=== PATIENT | female | born 1960 | race Hispanic/Latino ===

== ENCOUNTER 2023-03-15 01:22 | Emergency (ER) | payer OTHER ==
[~2023-03-15] VITALS: Ht 152.4 cm; Wt 72.6 kg
[2023-03-15] MEDS ORDERED: MORPHINE 4 MG SYG IVP ONE (02:00)
[2023-03-15] MEDS ORDERED: ONDANSETRON 4MG INJ IV ONE (02:00)
[2023-03-15 02:11] LABS: BASOPHILS % (AUTO) 0.3 % (0.0-5.0); EOSINOPHILS % (AUTO) 0.7 % (0.0-8.0); LYMPHOCYTES % (AUTO) 20.9 % (21.0-51.0); MEAN CORPUSCULAR HEMOGLOBIN 27.5 pg (27.0-33.0); MEAN CORPUSCULAR HGB CONC 33.6 g/dL (32.0-36.0); MONOCYTES % (AUTO) 10.9 % (3.0-13.0); NEUTROPHILS % (AUTO) 66.7 % (40.0-77.0); PLATELET COUNT (AUTO) 118 K/uL (130-400); RED BLOOD CELL COUNT(AUTO) 5.12 MIL/uL (4.00-5.50); RED CELL DISTRIBUTION WIDTH 15.6 % (11.0-15.5)
[2023-03-15 02:23] LABS: CREATININE 0.7 mg/dL (0.5-1.5); POTASSIUM 3.1 mmol/L (3.5-5.1)
[2023-03-15 02:28] LABS: ALBUMIN 3.7 g/dL (3.5-5.0); TOTAL PROTEIN, SERUM 6.9 g/dL (6.0-8.3)
[2023-03-15 02:47] LABS: B-TYPE NATRIURETIC PEPTIDE 11 pg/mL (0-100)
[2023-03-15] MEDS ORDERED: IOHEXOL-350 75 ML VIAL IV ONE (02:50)
[2023-03-15] MEDS ORDERED: POTASSIUM CHLORIDE 10% ELIXIR 20 MEQ/15 ML UDCUP PO ONE (03:00)
[2023-03-15 03:04] LABS: APPEARANCE,URINE CLEAR (CLEAR); BILIRUBIN,URINE NEGATIVE (NEGATIVE); COLOR,URINE COLORLESS (YELLOW); GLUCOSE, URINE (UA) NEGATIVE (NEGATIVE); KETONES,URINE NEGATIVE (NEGATIVE); LEUKOCYTE ESTERASE ,URINE 75 Leu/uL (NEGATIVE); NITRATE,URINE NEGATIVE (NEGATIVE); OCCULT BLOOD,URINE NEGATIVE (NEGATIVE); PROTEIN,URINE NEGATIVE (NEGATIVE); UROBILINOGEN,URINE 0.2 mg/dL (0.2-1.0)
[2023-03-15 03:10] LABS: BACTERIA,URINE FEW /HPF (None Seen); SQUAMOUS EPITHELIAL CELL,UR RARE /HPF (0-2)
[2023-03-15] MEDS ORDERED: HYDROMORPHONE 1 MG INJ IVP ONE (05:30)
[2023-03-15] MEDS ORDERED: OXYC-38 PO (05:44)
[2023-03-15] MEDS ORDERED: ONDA4TAB10 PO (05:44)
[2023-03-15] MEDS ORDERED: DOCU-116 PO (05:50)
[2023-03-15 06:49] VITALS: BP 72/69
[2023-03-16] MEDS ORDERED: CAPT50TA3 PO (08:42)
== END 2023-03-15 06:50 | disposition home or self-care (01) ==
LOC: EDH 01:22
DX: C79.51 Secondary malignant neoplasm of bone (principal); G89.3 Neoplasm related pain (acute) (chronic); M76.51 Patellar tendinitis, right knee; I10 Essential (primary) hypertension; Z98.890 Other specified postprocedural states; Z20.822 Contact with and (suspected) exposure to COVID-19
CPT/HCPCS: 99285; 74177; 96374; 71045; 96375; 87635; 84484; 80053; 83880; 85025; 87077; 87088; 87186; 81001; 36415; 93005; C9803; J1170; J2405; J2270; Q9967

== ENCOUNTER 2023-03-15 13:01 | Inpatient (IN) | payer OTHER ==
[~2023-03-15] VITALS: Ht 152.4 cm; Wt 77.1 kg
[~2023-03-15 13:01] MED LIST: DOCU-116 PO; ONDA4TAB10 PO; OXYC-38 PO
[2023-03-15] MEDS ORDERED: ONDANSETRON 4MG INJ IVP ONE (14:00)
[2023-03-15] MEDS ORDERED: HYDROMORPHONE 1 MG INJ IVP ONE (14:00)
[2023-03-15] MEDS ORDERED: 0.9%NACL 1000ML 1,000 ML IV ONE (14:00)
[2023-03-15 14:31] LABS: BASOPHILS % (AUTO) 0.3 % (0.0-5.0); EOSINOPHILS % (AUTO) 0.8 % (0.0-8.0); HEMATOCRIT 41.7 % (36-48); LYMPHOCYTES % (AUTO) 13.1 % (21.0-51.0); MEAN CORPUSCULAR HEMOGLOBIN 27.1 pg (27.0-33.0); MEAN CORPUSCULAR HGB CONC 33.1 g/dL (32.0-36.0); MEAN CORPUSCULAR VOLUME 81.8 fL (79-99); MONOCYTES % (AUTO) 13.6 % (3.0-13.0); NEUTROPHILS % (AUTO) 71.6 % (40.0-77.0); PLATELET COUNT (AUTO) 107 K/uL (130-400); RED CELL DISTRIBUTION WIDTH 15.9 % (11.0-15.5); WHITE BLOOD COUNT (AUTO) 6.4 K/uL (4.8-10.8)
[2023-03-15 14:38] LABS: CREATININE 0.5 mg/dL (0.5-1.5); POTASSIUM 3.3 mmol/L (3.5-5.1)
[2023-03-15 14:43] LABS: ALBUMIN 3.5 g/dL (3.5-5.0); TOTAL PROTEIN, SERUM 6.8 g/dL (6.0-8.3)
[2023-03-15] MEDS ORDERED: POTASSIUM CHLORIDE 20MEQ/100ML 100 ML IV PRN (17:00)
[2023-03-15] MEDS ORDERED: ONDANSETRON 4MG INJ IVP PRN (17:00)
[2023-03-15] MEDS ORDERED: ACETAMINOPHEN 500 MG TABLET PO PRN (17:00)
[2023-03-15] MEDS ORDERED: KCL 20 MEQ ERTAB PO PRN (17:00)
[2023-03-15] MEDS ORDERED: POTASSIUM CHLORIDE 10% ELIXIR 20 MEQ/15 ML UDCUP PO PRN (17:00)
[2023-03-15] MEDS ORDERED: HYDROMORPHONE 1 MG INJ ONE (18:05)
[2023-03-15] MEDS: FAMOTIDINE 20MG TAB PO SCH (21:45)
[2023-03-15] MEDS: KETOROLAC 15MG/ML VIAL (15MG/ML) IV PRN (21:57)
[2023-03-16] VITALS: BP 153/100
[2023-03-16] MEDS: HYDROMORPHONE 0.5 MG SYG (0.5MG/0.5ML) IVP PRN ×4 (00:59→16:17)
[2023-03-16 04:00] VITALS: BP 138/98
[2023-03-16] MEDS: KETOROLAC 15MG/ML VIAL (15MG/ML) IV PRN ×2 (04:01→13:20)
[2023-03-16 08:00] VITALS: BP 146/99
[2023-03-16] MEDS: FAMOTIDINE 20MG TAB PO SCH ×2 (08:30→19:37)
[2023-03-16] MEDS ORDERED: CAPT50TA3 PO (08:42)
[2023-03-16] MEDS: CAPTOPRIL 50 MG PO SCH ×2 (10:30→18:30)
[2023-03-16] MEDS ORDERED: HYDROMORPHONE 0.5 MG SYG (0.5MG/0.5ML) IVP ONE (11:00)
[2023-03-16 12:00] VITALS: BP 147/96
[2023-03-16] MEDS ORDERED: GADOTERATE MEGLUMINE 10 MMOL/20 ML VIAL IV ONE (14:21)
[2023-03-16 16:00] VITALS: BP 146/96
[2023-03-16] MEDS ORDERED: DEXAMETHASONE SOD PHOSPHATE 4 MG/ML 1ML VIAL IV SCH (18:00)
[2023-03-16] MEDS ORDERED: MORPHINE 15MG SR TAB PO SCH (18:00)
[2023-03-16] MEDS: HYDROMORPHONE 1 MG INJ IVP PRN (19:31)
[2023-03-16] MEDS: DEXAMETHASONE SOD PHOSPHATE 4 MG/ML 1ML VIAL IV SCH (19:33)
[2023-03-16] MEDS: ENOXAPARIN SODIUM 40 MG/0.4 ML SYRINGE SQ SCH (19:37)
[2023-03-16 20:00] VITALS: BP 148/98
[2023-03-16] MEDS: MORPHINE 15MG IR TAB PO PRN (20:15)
[2023-03-17] VITALS: BP 130/93
[2023-03-17] MEDS: KETOROLAC 15MG/ML VIAL (15MG/ML) IV PRN (01:16)
[2023-03-17] MEDS: CAPTOPRIL 50 MG PO SCH ×3 (02:30→18:30)
[2023-03-17 03:58] VITALS: BP 133/88
[2023-03-17 08:00] VITALS: BP 134/89
[2023-03-17] MEDS: POLYETHYLENE GLYCOL 3350 17 GM POWD.PACK PO SCH (08:56)
[2023-03-17] MEDS: ENOXAPARIN SODIUM 40 MG/0.4 ML SYRINGE SQ SCH (08:56)
[2023-03-17] MEDS: FAMOTIDINE 20MG TAB PO SCH ×2 (08:56→20:14)
[2023-03-17 12:00] VITALS: BP 131/90
[2023-03-17] MEDS: HYDROMORPHONE 1 MG INJ IVP PRN ×2 (12:45→20:13)
[2023-03-17] MEDS ORDERED: GADOTERATE MEGLUMINE 10 MMOL/20 ML VIAL IV ONE (12:48)
[2023-03-17 16:00] VITALS: BP 134/93
[2023-03-17] MEDS ORDERED: DEXAMETHASONE SOD PHOSPHATE 4 MG/ML 1ML VIAL IV SCH (18:00)
[2023-03-17 19:48] VITALS: BP 145/96
[2023-03-17] MEDS: DEXAMETHASONE SOD PHOSPHATE 4 MG/ML 1ML VIAL IV SCH (20:13)
[2023-03-18] VITALS: BP 129/93
[2023-03-18] MEDS: CAPTOPRIL 50 MG PO SCH ×3 (02:30→18:30)
[2023-03-18] MEDS: MORPHINE 15MG IR TAB PO PRN ×2 (02:54→20:26)
[2023-03-18 03:21] LABS: HEMATOCRIT 42.3 % (36-48); MEAN CORPUSCULAR HEMOGLOBIN 27.7 pg (27.0-33.0); MEAN CORPUSCULAR VOLUME 81.3 fL (79-99); RED BLOOD CELL COUNT(AUTO) 5.2 MIL/uL (4.00-5.50); RED CELL DISTRIBUTION WIDTH 15.8 % (11.0-15.5); WHITE BLOOD COUNT (AUTO) 7.8 K/uL (4.8-10.8)
[2023-03-18 03:40] LABS: ALBUMIN 3.4 g/dL (3.5-5.0); CREATININE 0.6 mg/dL (0.5-1.5); POTASSIUM 3.9 mmol/L (3.5-5.1)
[2023-03-18 03:58] LABS: TOTAL PROTEIN, SERUM 6.8 g/dL (6.0-8.3)
[2023-03-18 04:00] VITALS: BP 119/83
[2023-03-18 04:19] LABS: INR 0.95 (0.85-1.15); PROTHROMBIN TIME 10.4 SEC (9.6-11.6)
[2023-03-18 04:20] LABS: PARTIAL THROMBOPLASTIN TIME 27.1 SEC (26.3-35.5)
[2023-03-18 08:00] VITALS: BP 134/91
[2023-03-18] MEDS: POLYETHYLENE GLYCOL 3350 17 GM POWD.PACK PO SCH (08:42)
[2023-03-18] MEDS: FAMOTIDINE 20MG TAB PO SCH ×2 (08:42→20:26)
[2023-03-18] MEDS: ENOXAPARIN SODIUM 40 MG/0.4 ML SYRINGE SQ SCH (08:42)
[2023-03-18 11:00] VITALS: BP 118/82
[2023-03-18] MEDS: HYDROMORPHONE 1 MG INJ IVP PRN (15:14)
[2023-03-18 15:56] VITALS: BP 139/91
[2023-03-18] MEDS: DEXAMETHASONE SOD PHOSPHATE 4 MG/ML 1ML VIAL IV SCH (20:26)
[2023-03-18 20:56] VITALS: BP 133/87
[2023-03-19 00:43] VITALS: BP 128/87
[2023-03-19] MEDS: CAPTOPRIL 50 MG PO SCH ×3 (02:29→18:30)
[2023-03-19 04:42] VITALS: BP 134/98
[2023-03-19 08:00] VITALS: BP 147/79
[2023-03-19] MEDS: FAMOTIDINE 20MG TAB PO SCH ×2 (08:20→21:25)
[2023-03-19] MEDS: ENOXAPARIN SODIUM 40 MG/0.4 ML SYRINGE SQ SCH (08:20)
[2023-03-19] MEDS: POLYETHYLENE GLYCOL 3350 17 GM POWD.PACK PO SCH (08:20)
[2023-03-19] MEDS: HYDROMORPHONE 1 MG INJ IVP PRN (08:21)
[2023-03-19 12:00] VITALS: BP_SYST 107; BP_SYST 150; BP_DIAS 48; BP_DIAS 60
[2023-03-19] MEDS ORDERED: BISACODYL 5 MG TABLET.DR PO PRN (13:00)
[2023-03-19] MEDS: LACTULOSE 20 GM/30 ML UDCUP PO SCH ×2 (14:06→21:25)
[2023-03-19] MEDS: MORPHINE 15MG IR TAB PO SCH (14:09)
[2023-03-19 16:00] VITALS: BP 115/89
[2023-03-19] MEDS: KETOROLAC 15MG/ML VIAL (15MG/ML) IV PRN (18:12)
[2023-03-19 20:12] VITALS: BP 122/79
[2023-03-19] MEDS: DEXAMETHASONE 4 MG TAB PO SCH (21:26)
[2023-03-20 00:20] VITALS: BP 118/78
[2023-03-20] MEDS: MORPHINE 15MG IR TAB PO SCH ×2 (01:46→13:52)
[2023-03-20] MEDS: CAPTOPRIL 50 MG PO SCH ×3 (01:49→17:42)
[2023-03-20 04:57] VITALS: BP 125/80
[2023-03-20] MEDS: LACTULOSE 20 GM/30 ML UDCUP PO SCH ×3 (06:03→20:54)
[2023-03-20] MEDS: KETOROLAC 15MG/ML VIAL (15MG/ML) IV PRN ×2 (06:13→17:44)
[2023-03-20 08:00] VITALS: BP 120/80
[2023-03-20] MEDS: POLYETHYLENE GLYCOL 3350 17 GM POWD.PACK PO SCH (09:00)
[2023-03-20] MEDS: FAMOTIDINE 20MG TAB PO SCH ×2 (09:56→20:54)
[2023-03-20] MEDS: DEXAMETHASONE 4 MG TAB PO SCH ×2 (09:57→20:54)
[2023-03-20] MEDS: ENOXAPARIN SODIUM 40 MG/0.4 ML SYRINGE SQ SCH (09:57)
[2023-03-20 12:00] VITALS: BP 123/81
[2023-03-20 16:00] VITALS: BP 132/99
[2023-03-20 20:00] VITALS: BP 129/84
[2023-03-21] VITALS: BP 126/77
[2023-03-21] MEDS: MORPHINE 15MG IR TAB PO SCH ×2 (01:28→13:34)
[2023-03-21] MEDS: CAPTOPRIL 50 MG PO SCH ×3 (01:28→18:10)
[2023-03-21 04:00] VITALS: BP 121/69
[2023-03-21] MEDS: LACTULOSE 20 GM/30 ML UDCUP PO SCH ×3 (06:27→19:55)
[2023-03-21 08:00] VITALS: BP 140/84
[2023-03-21] MEDS: POLYETHYLENE GLYCOL 3350 17 GM POWD.PACK PO SCH (09:00)
[2023-03-21] MEDS: FAMOTIDINE 20MG TAB PO SCH ×2 (09:05→19:55)
[2023-03-21] MEDS: DEXAMETHASONE 4 MG TAB PO SCH ×2 (09:05→19:55)
[2023-03-21] MEDS: ENOXAPARIN SODIUM 40 MG/0.4 ML SYRINGE SQ SCH (09:06)
[2023-03-21] MEDS: KETOROLAC 15MG/ML VIAL (15MG/ML) IV PRN ×2 (09:33→20:41)
[2023-03-21 11:49] VITALS: BP 143/92
[2023-03-21 15:55] VITALS: BP 137/84
[2023-03-21 20:00] VITALS: BP 132/82
[2023-03-22] VITALS: BP 139/93
[2023-03-22] MEDS: MORPHINE 15MG IR TAB PO SCH ×2 (01:21→14:30)
[2023-03-22] MEDS: CAPTOPRIL 50 MG PO SCH ×3 (01:21→18:30)
[2023-03-22 04:00] VITALS: BP 127/81
[2023-03-22] MEDS: LACTULOSE 20 GM/30 ML UDCUP PO SCH ×3 (05:14→20:17)
[2023-03-22 08:00] VITALS: BP 145/87
[2023-03-22] MEDS: POLYETHYLENE GLYCOL 3350 17 GM POWD.PACK PO SCH (08:36)
[2023-03-22] MEDS: FAMOTIDINE 20MG TAB PO SCH ×2 (08:36→20:16)
[2023-03-22] MEDS: DEXAMETHASONE 4 MG TAB PO SCH ×2 (08:36→20:17)
[2023-03-22] MEDS: KETOROLAC 15MG/ML VIAL (15MG/ML) IV PRN ×2 (08:37→18:33)
[2023-03-22] MEDS: ENOXAPARIN SODIUM 40 MG/0.4 ML SYRINGE SQ SCH (08:41)
[2023-03-22 11:55] VITALS: BP 141/85
[2023-03-22 16:00] VITALS: BP 137/77
[2023-03-22 20:00] VITALS: BP 139/95
[2023-03-23] VITALS: BP 126/82
[2023-03-23] MEDS: MORPHINE 15MG IR TAB PO SCH ×2 (02:06→15:04)
[2023-03-23] MEDS: CAPTOPRIL 50 MG PO SCH ×2 (02:06→09:11)
[2023-03-23 04:00] VITALS: BP 129/86
[2023-03-23] MEDS: KETOROLAC 15MG/ML VIAL (15MG/ML) IV PRN ×3 (04:29→17:39)
[2023-03-23] MEDS: LACTULOSE 20 GM/30 ML UDCUP PO SCH ×2 (06:04→14:51)
[2023-03-23 08:00] VITALS: BP 145/90
[2023-03-23] MEDS ORDERED: DEXA4TAB PO (08:09)
[2023-03-23] MEDS: DEXAMETHASONE 4 MG TAB PO SCH (09:09)
[2023-03-23] MEDS: FAMOTIDINE 20MG TAB PO SCH (09:09)
[2023-03-23] MEDS: POLYETHYLENE GLYCOL 3350 17 GM POWD.PACK PO SCH (09:09)
[2023-03-23] MEDS: ENOXAPARIN SODIUM 40 MG/0.4 ML SYRINGE SQ SCH (09:10)
[2023-03-23 12:00] VITALS: BP 148/99
== END 2023-03-23 18:00 | disposition home or self-care (01) | DRG 598 ==
LOC: EDH 13:01 → EDHIP 13:02 → 4DH 22:03
PROVIDERS: ADMIT Family Medicine; ATTEND Family Medicine
DX: C50.919 Malignant neoplasm of unspecified site of unspecified female breast (principal); C79.51 Secondary malignant neoplasm of bone; G95.20 Unspecified cord compression; G83.4 Cauda equina syndrome; G89.3 Neoplasm related pain (acute) (chronic); K59.00 Constipation, unspecified; Z90.12 Acquired absence of left breast and nipple; Z85.3 Personal history of malignant neoplasm of breast; I10 Essential (primary) hypertension; M54.10 Radiculopathy, site unspecified; E11.9 Type 2 diabetes mellitus without complications; E66.9 Obesity, unspecified; E78.00 Pure hypercholesterolemia, unspecified; Z51.5 Encounter for palliative care; Z68.33 Body mass index [BMI] 33.0-33.9, adult; Z90.49 Acquired absence of other specified parts of digestive tract; Z92.3 Personal history of irradiation; Z79.899 Other long term (current) drug therapy
CPT/HCPCS: 36415; 72070; 72100; 72157; 72158; 80053; 83690; 84484; 85025; 85027; 85610; 85730; G0378; J1100; J1170; J1650; J1885; J2405; J7030; J8540

== ENCOUNTER 2023-04-03 15:07 | Emergency (ER) | payer OTHER ==
[~2023-04-03] VITALS: Ht 160 cm; Wt 72.6 kg
[~2023-04-03 15:07] MED LIST changes: +CAPT50TA3 PO; +DEXA4TAB PO; -OXYC-38 PO
[2023-04-03 15:49] LABS: BASOPHILS % (AUTO) 0.1 % (0.0-5.0); HEMATOCRIT 41.9 % (36-48); LYMPHOCYTES % (AUTO) 4.8 % (21.0-51.0); MEAN CORPUSCULAR HEMOGLOBIN 27.7 pg (27.0-33.0); MEAN CORPUSCULAR HGB CONC 34.1 g/dL (32.0-36.0); NEUTROPHILS % (AUTO) 88.6 % (40.0-77.0); PLATELET COUNT (AUTO) 96 K/uL (130-400); RED BLOOD CELL COUNT(AUTO) 5.17 MIL/uL (4.00-5.50); RED CELL DISTRIBUTION WIDTH 16.3 % (11.0-15.5); WHITE BLOOD COUNT (AUTO) 7.3 K/uL (4.8-10.8)
[2023-04-03] MEDS ORDERED: KETOROLAC 30MG VIAL (30MG/ML) IVP ONE (16:00)
[2023-04-03] MEDS ORDERED: FAMOTIDINE 20MG VIAL IV ONE (16:00)
[2023-04-03] MEDS ORDERED: METOCLOPRAMIDE 10 MG/2 ML VIAL IVP ONE (16:00)
[2023-04-03 16:04] LABS: CREATININE 0.6 mg/dL (0.5-1.5); POTASSIUM 3.4 mmol/L (3.5-5.1)
[2023-04-03 16:08] LABS: ALBUMIN 3.1 g/dL (3.5-5.0); TOTAL PROTEIN, SERUM 6.4 g/dL (6.0-8.3)
[2023-04-03] MEDS ORDERED: MORPHINE PO (16:47)
[2023-04-03] MEDS ORDERED: CAPT25TA3 PO (16:48)
[2023-04-03] MEDS ORDERED: DEXA4TAB PO (16:49)
[2023-04-03] MEDS ORDERED: IOHEXOL 350 MG/ML 100ML INFUS..BTL IV ONE (18:00)
[2023-04-03 20:16] LABS: ABG BASE EXCESS 1.9 mmol/L (-2.0-3.0); ABG HCO3 24.7 mmol/L (21.0-28.0); ABG OXYGEN SATURATION 94.6 % (95.0-99.0); ABG PCO2 33 mmHg (32-45)
[2023-04-03] MEDS ORDERED: IPRATROPIUM/ALBUTEROL SULFATE 3 ML SOLUTION IH ONE (21:30)
[2023-04-04 00:06] VITALS: BP 126/60
[2023-04-04] MEDS ORDERED: IPRATROPIUM/ALBUTEROL SULFATE 3 ML SOLUTION IH ONE (01:00)
[2023-04-04] MEDS ORDERED: IBUP-1493 PO (01:07)
[2023-04-04] MEDS ORDERED: ALBU90AE2 IH (01:07)
[2023-04-04] MEDS ORDERED: CEFU500T67 PO (01:07)
[2023-04-04] MEDS ORDERED: PRED20TA3 PO (01:07)
== END 2023-04-04 01:43 | disposition home or self-care (01) ==
LOC: EDH 15:07
DX: C79.51 Secondary malignant neoplasm of bone (principal); J20.9 Acute bronchitis, unspecified; J45.998 Other asthma; I10 Essential (primary) hypertension; Z20.822 Contact with and (suspected) exposure to COVID-19; Z79.899 Other long term (current) drug therapy; Z98.890 Other specified postprocedural states
CPT/HCPCS: 99285; 96374; 71275; 71045; 96375; 87635; 82947; 84484; 80053; 82803; 85025; 85378; 87804 ×2; 36415; 93005; 36600; 94640 ×2; 82435; 84132; 84295; 85018; 83605 ×3; C9803; J3490; J1885; J2765; Q9967